=== PATIENT | female | born 1985 | race Two or more races ===

== ENCOUNTER 2019-04-08 06:31 | Inpatient (IN) | payer OTHER ==
[~2019-04-08] VITALS: Ht 160 cm; Wt 90.0 kg
[2019-04-08] VITALS (13 sets, daily range): BP systolic 104–128; BP diastolic 51–75
[~2019-04-08 06:31] MED LIST: ALBUTEROL SULF8.5 GM INH; TRAMADOL HCL50 MG ORAL
[2019-04-08] MEDS ORDERED: ceFAZolin sod 1 GM in NS 55 ML IVPB ONE (07:00)
[2019-04-08] MEDS ORDERED: ROBAXIN-500MG ORAL (07:16)
[2019-04-08] MEDS ORDERED: Vancomycin 1gm vial IVPB ONE (07:22)
[2019-04-08] MEDS ORDERED: TransDerm Scop 1.5mg/72HR Patch TDERMAL ONE ×2 (07:22→08:15)
[2019-04-08] MEDS ORDERED: Succinylcholine 20mg/ml 10ml vial ONE (07:23)
[2019-04-08] MEDS ORDERED: Rocuronium Bromide 50mg/5ml Inj IV ONE (07:23)
[2019-04-08] MEDS ORDERED: Midazolam 2mg/2ml Inj ONE (07:31)
[2019-04-08] MEDS ORDERED: fentaNYL 100 mcg/2 mL IV ONE (07:31)
[2019-04-08] MEDS ORDERED: Lidocaine 1% MPF 10mg/ml 5ml ONE (07:35)
[2019-04-08] MEDS ORDERED: Ketorolac 30mg Inj ONE (07:35)
[2019-04-08] MEDS ORDERED: Gelfoam Size TOPIC ONE (07:55)
[2019-04-08] MEDS ORDERED: Thrombin 5000 units TOPIC ONE ×2 (07:55→08:18)
[2019-04-08] MEDS ORDERED: Bupivacaine w/Epi 0.5% 30ml Vial INJ ONE (07:55)
[2019-04-08] MEDS ORDERED: Bacitracin 50000 Units Vial ONE (07:55)
[2019-04-08] MEDS ORDERED: Propofol 1,000mg/ 100ml btl IV ONE (08:00)
[2019-04-08] MEDS ORDERED: Sterile Water Irrig 1000ml IRRIG ONE (08:00)
[2019-04-08] MEDS ORDERED: LR 1000ml ONE (08:00)
[2019-04-08] MEDS ORDERED: NS Irrig 1000ml ONE (08:00)
[2019-04-08] MEDS ORDERED: Neostigmine 1mg/ml 10ml Inj ONE (08:00)
[2019-04-08] MEDS ORDERED: Glycopyrrolate 0.2mg/ml 1ml Vial ONE (08:00)
--- NOTE | 2019-04-08 08:12 | Anethesia Preoperative Eval ---
Anesthesia Pre-op PMH/ROS General Date of Evaluation: Apr 08, 2019 Time of Evaluation: 08:10 Anesthesiologist: Jones ASA Score: ASA 2 Mallampati Score Class I : Soft palate, uvula, fauces, pillars visible Class II: Soft palate, uvula, fauces visible Class III: Soft palate, base of uvula visible Class IV: Only hard plate visible Mallampati Classification: Class II Surgeon: Victoriano Diagnosis: Cervical radiculopathy Surgical Procedure: ACDF Anesthesia History: none Family History: no anesthesia problems Allergies: Coded Allergies: CEPHALEXIN (Verified Allergy, Severe, itching, 04/08/19) NICKEL (Verified Allergy, Severe, eczema, 04/08/19) AMOXICILLIN (Verified Adverse Reaction, Severe, "developed C-Diff", ) Medications: see eMAR Patient NPO?: Yes NPO Date: Apr 07, 2019 NPO Time: 2029 Past Medical History Cardiovascular: Denies: HTN, CAD, [place], valve dz, arrhythmia, other Pulmonary: Reports: asthma - mild; Denies: COPD, CYRUS, other Gastrointestinal/Genitourinary: Reports: GERD, other - Crons in remission; Denies: CRI, ESRD Neurologic/Psychiatric: Denies: dementia, CVA, depression/anxiety, TIA, other Endocrine: Denies: DM, hypothyroidism, steroids, other HEENT: Denies: cataract (L), cataract (R), glaucoma, ANGOON (L), ANGOON (R), other Hematology/Immune: Denies: anemia, DVT, bleeding disorder, other Musculoskeletal/Integumentary: Denies: OA, RA, DJD, DDD, edema, other Other: obesity PMH Narrative: as above PSxH Narrative: Dental Anesthesia Pre-op Phys. Exam Physician Exam Last Vital Signs Date Time Temp Pulse Resp B/P (MAP) Pulse Ox O2 Delivery O2 Flow Rate FiO2 04/08/19 07:17 Room Air 04/08/19 07:07 98.1 60 18 119/75 (90) 99 Constitutional: NAD Neurologic: CN 2-12 intact Cardiovascular: RRR, no M/R/G Respiratory: CTA Gastrointestinal: S/NT/ND Airway Exam Mallampati Score: Class II MO: full Neck: stiff ROM: limited Teeth: intact Dentures: no upper, no lower Anesthesia Pre-op A/P Labs Urine Test Test 04/08/19 06:45 Urine HCG, Qualitative Negative (NEGATIVE) Armando Goldman MD Apr 08, 2019 08:12
[2019-04-08] MEDS ORDERED: Acetaminophen (Non formulary) 100 ML IV ONE (08:15)
--- NOTE | 2019-04-08 08:48 | Pre-Procedure Note/Attestation ---
Pre-Procedure Note/Attestation Complete Prior to Procedure Procedure Narrative: ACDF C56 Indications for Procedure Pre-Operative Diagnosis: C56 discopathy, facet dysfunction Attestation I attest that I discussed the nature of the procedure; its benefits; risks and complications; and alternatives (and the risks and benefits of such alternatives ), prior to the procedure, with the patient (or the patient's legal apprenticeship training representative). I attest that, if there was a reasonable possibility of needing a blood transfusion, the patient (or the patient's legal apprenticeship training representative) was given the [facility] standardized written summary, pursuant to the Cameron Milla Blood Safety Act ([place] Health and Safety Code # 1645, as amended). I attest that I re-evaluated the patient just prior to the surgery and that there has been no change in the patient's H&P, except as documented below: Pedro Pastrana MD Apr 08, 2019 08:47
--- NOTE | 2019-04-08 08:56 | NUR ---
CASE MANAGEMENT:REVIEW 33 YR OLD FEMALE HERE FOR ELECTIVE SURGERY SI: C56 DISCOPATHY,FACET DYSFUNCTION 98.1 60 18 119/75 99% ON RA IS: TO SURGERY FOR: ACDF C56 IV ANCEF X1 : CURRENTLY IN SURGERY
[2019-04-08] MEDS ORDERED: Morphine Sulfate 10mg/ml Inj ONE (09:10)
[2019-04-08] MEDS ORDERED: Sodium Chloride 10ml vial INJ ONE (09:10)
[2019-04-08] MEDS ORDERED: LR 1000ml 1,000 ML IVLG SCH (09:37)
[2019-04-08] MEDS ORDERED: Meperidine 50mg/ml Inj(FOR RIGORS ONLY) IVP PRN (09:45)
[2019-04-08] MEDS ORDERED: DiphenhydrAMINE 50mg/ml Inj IVP PRN (09:45)
[2019-04-08] MEDS ORDERED: HYDROmorphone 1mg/ml Carpuject SUBQ PRN (09:45)
[2019-04-08] MEDS ORDERED: Metoclopramide 10mg/2ml Inj IVP PRN ×2 (09:45→10:30)
[2019-04-08] MEDS ORDERED: Hydromorphone 0.5mg/0.5ml inj IVP PRN (09:45)
[2019-04-08] MEDS ORDERED: Ketorolac 30mg Inj IV PRN (09:45)
[2019-04-08] MEDS ORDERED: Midazolam 2mg/2ml Inj IVP PRN (09:45)
[2019-04-08] MEDS ORDERED: Milk of Magnesia 30ml Ud ORAL PRN ×2 (09:45→12:28)
[2019-04-08] MEDS ORDERED: oxyCODONE 5mg IR tab ORAL PRN (09:45)
[2019-04-08] MEDS ORDERED: Methocarbamol 750mg tab ORAL PRN (10:00)
--- NOTE | 2019-04-08 10:31 | Brief Operative Note ---
Immediate Post Operative Note Operative Note Pre-op Diagnosis: C56 discopathy, facet dysfunction Procedure: c56 ACDF Post-op Diagnosis: same as pre-op Findings: consistent w/pre-op dx studies Surgeon: tanner Baler: caty suarez Anesthesiologist: adam Anesthesia: general Specimen: none Complications: none Condition: stable Fluids: 800 Estimated Blood Loss: minimal Drains: none Implant(s) used?: Yes - 4web and nextspine Pedro Pastrana MD Apr 08, 2019 10:31
--- NOTE | 2019-04-08 11:10 | Immediate Post-Op Evaluation ---
Immediate Post-Op Evalulation Immediate Post-Op Evalulation Procedure: ACDF C5-C6 Date of Evaluation: Apr 08, 2019 Time of Evaluation: 11:09 IV Fluids: 1000 Blood Products: none Estimated Blood Loss: 30 Urinary Output: 250 Blood Pressure Systolic: 116 Blood Pressure Diastolic: 56 Pulse Rate: 72 Respiratory Rate: 20 O2 Sat by Pulse Oximetry: 99 Temperature (Fahrenheit): 97.8 Pain Score (1-10): 1 Nausea: No Vomiting: No Complications none Patient Status: awake, patent, extubated, none Hydration Status: adequate Armando Goldman MD Apr 08, 2019 11:10
[2019-04-08] MEDS ORDERED: Albuterol ud Inhalation HHN PRN (12:25)
[2019-04-08] MEDS ORDERED: Chloraseptic Spray 20mL Bottle ORAL PRN (12:27)
--- NOTE | 2019-04-08 12:30 | NUR ---
NURSE NOTES: Pt was transferred from PACU via hospital bed. NC 3L/min. No c/o of pain/discomfort at this moment. IV on R hand 18g noted. Dressing noted on R sided neck, intact. Cervical collar on. SCD on bilateral legs. Orientation on new unit given. Belongings were accounted and given to . Bed in the lowest, locked, and alarm on. Call light within reach. Will continue to monitor
[2019-04-08] MEDS ORDERED: Albuterol/Ipratropium 3ml neb HHN PRN (12:45)
[2019-04-08] MEDS: D5 1/2NS 1,000 ML IV SCH ×2 (13:27→21:03)
[2019-04-08] MEDS: Dronabinol 2.5mg Cap ORAL SCH ×2 (13:27→21:02)
--- NOTE | 2019-04-08 13:43 | 48 Hour Post Anesthesia Eval ---
Post Anesthesia Evaluation Procedure: ACDF C5-C6 Date of Evaluation: Apr 08, 2019 Time of Evaluation: 13:42 Blood Pressure Systolic: 107 0: 62 Pulse Rate: 53 Respiratory Rate: 18 Temperature (Fahrenheit): 98.6 O2 Sat by Pulse Oximetry: 99 Airway: patent Nausea: No Vomiting: No Pain Intensity: 3 Hydration Status: adequate Cardiopulmonary Status: Stable Mental Status/LOC: patient returned to baseline Follow-up Care/Observations: 0 Post-Anesthesia Complications: 0 Jay Howell MD Apr 08, 2019 13:43
[2019-04-08] MEDS: Hydromorphone 0.5mg/0.5ml inj IVP PRN ×3 (13:44→21:03)
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
[2019-04-08] MEDS: Docusate 100mg cap ORAL SCH (17:36)
[2019-04-08] MEDS: Vancomycin 1 GM in D5W 275 ML IVPB SCH (17:42)
[2019-04-08] MEDS ORDERED: Docusate 100mg cap ORAL SCH (18:00)
--- NOTE | 2019-04-08 18:46 | Operative Note - Dictated ---
DATE OF OPERATION: 04/08/2019 SURGEON: Pedro Pastrana M.D. [employer]: Scotty Willson Anesthesis: Ravinder Goldman MD Anesthesia: GETA EBL: Minimal Fluids: 800cc PREOPERATIVE DIAGNOSIS: Cervical diskopathy facet syndrome, C5-C6. POSTOPERATIVE DIAGNOSIS: Cervical diskopathy facet syndrome, C5-C6. PROCEDURES: 1. Wide and radical diskectomy with decompression of spinal cord, C5-C6. 2. Interbody fusion using 4WEB structural cage. 3. Use of local autograft. 4. Use of allograft (Signafuse). 5. Anterior instrumentation using Nexxt Spine structure cervical plates. 6. Use of fluoroscopy. 7. Neurodiagnostic monitoring. 8. Use of operating microscope. OPERATIVE FINDINGS: Left-sided posterior, inferior annular rupture with extensive neovascularization and chronic inflammatory changes along the posterior lateral aspect of the disk, left side, C5-C6. INDICATIONS: The patient is a very pleasant woman with substantial neck pain post injury. Extensive conservative care was attempted. Despite having had temporary relief following injections and facet blocks, her symptomatic complaints persisted. Surgical intervention was discussed initially of artificial disk, however, based on the good overall benefits following the facet injections, I felt that a artificial disk would be less beneficial. The patient elected to proceed with surgical indications as outlined. RISKS NOTE: The patient was explained in detail risks, benefits of surgery to include, but not be limited to those of bleeding, infection, damage to nerves, vessels, tendons, anesthetic risk, allergic reaction, aspiration, possibly , possible ongoing pain and/or pseudoarthrosis, and need for additional surgery was discussed. OPERATIVE PROCEDURE IN DETAIL: The patient was taken to the operative suite. After general endotracheal anesthesia was obtained, Whitten catheter was placed. A bolster was placed under the neck, the arms were strapped. The chin was tucked and taped into place. Fluoroscope was brought in place and the C5-C6 level was marked out. At this point, the neck was prepped and draped in usual sterile fashion. The skin incision was carried out transversely at or about the C5-C6 level and placed in a skin crease. At this point, skin was infiltrated with Marcaine with epinephrine. The transverse incision was carried out to the platysma. Platysma was split perpendicular to the fibers. Blunt dissection was then carried out medial to the sternocleidomastoid and the neurovascular bundle. At this point, palpation of the disk was identified and the C5-C6 level was identified. Self-retaining Shadow-Line retractors were brought into place. Longus colli was elevated bilaterally and the retractor blades were placed deep to the longus colli. At this point, with use of a combination of Bovie as well as scalpel, the anterior aspect of the disk was incised, thorough diskectomy was performed. Once the diskectomy was carried out to the posterior aspect of the disk, a annular rent was clearly identified at the inferior aspect of the anulus. Extensive neovascularization and chronic inflammatory changes were noted. Bipolar was used to cauterize the bleeders. The posterior longitudinal ligament was removed in a piecemeal fashion using Kerrison 2 punches. Prominent bone spur along the posterior lateral corner was then removed with a Kerrison punch and high-speed drill. Once satisfied, endplate preparation was then performed, copious irrigation was performed, meticulous hemostasis was achieved. Please note that bone shavings with use of the high-speed drill were then harvested and used in the lateral gutter on the left side. At this point, the appropriate sized small profile 4WEB device was inserted after it was packed with Signafuse. Please note that prior to the diskectomy, Ortega posts were inserted and at the end of the procedure, they were removed. The hole was cauterized and bone wax was applied. Once satisfied with final interbody placement position, which actually did require repositioning as it was partially angulated, excellent interbody positioning was noted. Fluoroscopically, this was verified. At this point, an 8 mm plate was then chosen and appropriate sized screws were drilled and applied at every level. Once satisfied with screw placement, both clinically microscopically and fluoroscopically, the locking mechanism was deployed. Final AP lateral x-rays were obtained. At this point, sponge, needle counts were correct. Copious irrigation was performed. Meticulous hemostasis was achieved. Platysma was repaired using 0 Vicryl subcutaneous closure using 4-0 Vicryl. Dermabond and sterile dressing was applied. At the time of this dictation, awaiting extubation. [facility] Sherrell Pastrana DR: PAM JOB#: [id number] CC: LUCAS
[2019-04-08] MEDS ORDERED: Albuterol ud Inhalation HHN SCH (19:00)
--- NOTE | 2019-04-08 19:11 | NUR ---
HAND-OFF: Report given to KRISTI Leary.
[2019-04-08] MEDS: Albuterol/Ipratropium 3ml neb HHN SCH (19:40)
--- NOTE | 2019-04-08 21:30 | NUR ---
NURSE NOTES: Pt is in bed, awake and alert. Vitals stable. No acute distress noted. Pt is ambulatory, able to walk around the hallway. D5 1/2Ns running at 100ml/hr. Incentive spherometer by bedside, encouraged to use. SCDs on bilateral lower extremity. Pt has Neck collar on, dressing dry and intact. Patient complains of pain, pain medication will be given as ordered PRN. Fall precaution in place, bed locked low in position,side rails up and call light within reach. Patient will be monitored.
[2019-04-09] VITALS: BP 115/60
[2019-04-09] MEDS: Hydromorphone 0.5mg/0.5ml inj IVP PRN ×4 (00:15→09:07)
[2019-04-09] MEDS: Albuterol/Ipratropium 3ml neb HHN SCH ×2 (01:53→07:49)
[2019-04-09 04:00] VITALS: BP 123/60
--- NOTE | 2019-04-09 05:28 | NUR ---
NURSE NOTES: Pt is in bed, awake and alert. Pt is able to ambulate independently. Pt tolerating fluid orally, Dr. Denny ordered to DC IV fluid. Pt does however require Dilaudid 0.5mg IVP q3hrs for pain. Neck collar in place.
[2019-04-09] MEDS: Dronabinol 2.5mg Cap ORAL SCH (05:53)
[2019-04-09] MEDS: Vancomycin 1 GM in D5W 275 ML IVPB SCH (05:53)
--- NOTE | 2019-04-09 07:03 | NUR ---
HAND-OFF: Report given to KRISTI Nunez.
--- NOTE | 2019-04-09 07:15 | Progress Note ---
DATE: 04/09/2019 ACUTE PAIN MANAGEMENT PHYSICIAN PROGRESS NOTE MEDICATIONS: Medication administration record reviewed. Medications include Tylenol, Fioricet, Mylanta, albuterol, Atrovent, Benadryl, Colace, Marinol, Dilaudid, milk of magnesia, Robaxin, Reglan, Zofran, oxycodone, Protonix, Chloraseptic spray, Phenergan, Restoril, vancomycin. LABORATORY STUDIES: No interval laboratory studies. OBJECTIVE: VITAL SIGNS: Afebrile, pulse 80, respirations 17, blood pressure 123/60, oxygen saturation 97% on room air. I spent over 60 minutes in consultation today. I saw the patient at the bedside with the nurse, Paulo. I discussed the case with the surgeon, Dr. Pastrana. The patient has been doing very well after her cervical spine surgery. The neck dressing appears clean and dry with the Crystal collar in place. The patient has been able to move in and out of bed independently, without any extra assistance needed. She is swallowing, breathing, and phonating within normal limits. The neck dressing appears clean and dry. The patient appears grossly neurologically intact. The patient states that her postoperative pain is primarily incisional in-nature. This is very encouraging as hopefully the incisional pain will subside within the next 48 hours. The patient has been using the IV Dilaudid primarily for analgesia postoperatively. I have left a prescription for Percocet 10/325 tablets quantity of 40 for outpatient usage. The patient has been tolerating the around the clock Marinol every 8 hours here in the hospital and will use her medical marijuana at home for analgesia as well. The patient is tolerating liquid intake. She has no nausea symptoms. She denies shortness of breath or chest pain. Her vital signs are stable and she has been compliant using her incentive spirometer. She is ambulating well for DVT prophylaxis. The patient is alert and oriented x3. She is pleasant and in good spirits. The will be able to assist with activities of daily living. I expect Dr. Pastrana will re-evaluate the patient later this morning with likely expectations to discharge to home. Glenn Denny M.D. DR: ELISABETH JOB#: [id number] CC:
--- NOTE | 2019-04-09 07:37 | NUR ---
NURSE NOTES: Received pt in bed, AAO x 4. Room air. No c/o of pain/distress at this moment. cervical collar on. IV on R hand 18g intact, running vanco. Side rails x 2. Bed in the lowest and locked. Call light within reach. Will continue to monitor
--- NOTE | 2019-04-09 07:55 | NUR ---
P.T Note: late entry 04/08/19 1500 P.T evaluation completed and tx initiated per spinal protocols. See P.T evaluation for current functional status.
[2019-04-09 08:00] VITALS: BP 116/78
[2019-04-09] MEDS: Docusate 100mg cap ORAL SCH (08:35)
--- NOTE | 2019-04-09 08:35 | Orthopedic Spine Progress Note ---
Ortho Spine - Progress Note Subjective Symptoms: c/o post-op neck pain, improved - as compared to pre-op Objective Vital Signs: Last 24 Hour Vital Signs Date Time Temp Pulse Resp B/P (MAP) Pulse Ox O2 Delivery O2 Flow Rate FiO2 04/09/19 07:40 84 19 98 Room Air 21 80 18 98 04/09/19 04:00 98.7 80 17 123/60 (81) 97 04/09/19 01:53 81 16 100 Room Air 36 79 18 100 04/09/19 00:00 98.5 61 17 115/60 (78) 97 04/08/19 21:00 Room Air 04/08/19 20:00 98.5 65 18 116/68 (84) 96 04/08/19 19:42 75 16 99 Room Air 21 04/08/19 19:40 83 16 99 Room Air 36 78 18 98 04/08/19 15:00 98.0 60 20 104/64 (77) 97 04/08/19 14:00 98.2 64 20 108/60 (76) 96 04/08/19 13:43 53 18 99 04/08/19 13:00 97.9 64 20 104/51 (68) 99 04/08/19 12:30 98.6 57 18 107/62 (77) 99 04/08/19 12:00 62 17 118/58 99 Nasal Cannula 3 04/08/19 11:45 60 16 125/60 99 Nasal Cannula 3 04/08/19 11:30 61 14 111/65 100 Nasal Cannula 3 04/08/19 11:20 62 12 115/62 100 Simple Mask 6 04/08/19 11:10 65 19 104/62 100 Simple Mask 6 04/08/19 11:10 72 20 99 04/08/19 11:05 72 20 111/57 100 Simple Mask 6 04/08/19 11:01 97.7 89 14 128/57 100 Simple Mask 6 I&O: Intake and Output 04/08/19 04/09/19 19:00 07:00 Intake Total 1700 ml 1343.3 ml Output Total 280 ml Balance 1420 ml 1343.3 ml Intake Oral 600 ml 360 ml IV Total 1100 ml 983.3 ml Output Urine Total 250 ml Estimated Blood Loss 30 ml # Voids 1 1 Wound: clean, intact Drains: none Neuro Status: normal Assessment Procedure Performed: c56 ACDF Plan Plan: PT, discharge plan Pedro Pastrana MD Apr 09, 2019 08:34
--- NOTE | 2019-04-09 09:18 | NUR ---
P.T Note: Pt reports c/o increased discomfort wearing ASPEN cervical collar. Will clarify with Dr. Pastrana if OK to weak sof cervical collar in bed. RN notified. Addendum: 04/09/19 at 0918 by BYRON VÁSQUEZ PT Amended: Links added.
[2019-04-09] MEDS ORDERED: PERCOCET 10-321 EAC1 ORAL (11:41)
[2019-04-09] MEDS ORDERED: Metoclopramide 10mg/2ml Inj IVP PRN (12:30)
[2019-04-09] MEDS ORDERED: Hydromorphone 0.5mg/0.5ml inj IVP PRN (12:30)
[2019-04-09] MEDS ORDERED: oxyCODONE 5mg IR tab ORAL PRN (12:30)
[2019-04-09] MEDS ORDERED: Chloraseptic Spray 20mL Bottle ORAL PRN (12:30)
[2019-04-09] MEDS ORDERED: Milk of Magnesia 30ml Ud ORAL PRN (12:30)
[2019-04-09] MEDS ORDERED: HYDROmorphone 1mg/ml Carpuject SUBQ PRN (12:30)
[2019-04-09] MEDS ORDERED: Methocarbamol 750mg tab ORAL PRN (12:30)
[2019-04-09] MEDS ORDERED: Albuterol/Ipratropium 3ml neb HHN PRN (12:30)
--- NOTE | 2019-04-09 12:47 | NUR ---
NURSE NOTES: patient was discharged to home via private vehicle accompanied by and friend. Escorted pt to first floor. ID and IV was removed. No s/s of infection on the removal site. Prescription and discharge instructions were given to patient and instructed pt to follow up with dr. Pastrana. Soft cervical collar was given to patient and was instructed to wear only when pt is sleeping, and need to wear the ASPEN cervical collar at all time. Belongings were accounted and given to patient.
[2019-04-09] MEDS ORDERED: Albuterol/Ipratropium 3ml neb HHN SCH (13:00)
[2019-04-09] MEDS ORDERED: Dronabinol 2.5mg Cap ORAL SCH (14:00)
[2019-04-09] MEDS ORDERED: Docusate 100mg cap ORAL SCH (18:00)
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
--- NOTE | 2019-04-11 15:48 | Diagnostic Imaging Report ---
Indication: Intraoperative imaging COMPARISON: None FINDINGS: Multiple fluoroscopic images were obtained intraoperatively. Localization imaged anteriorly at C5-6 demonstrated. This was followed by anterior discectomy and fusion. IMPRESSION: Intraoperative imaging
== END 2019-04-09 12:45 | disposition home or self-care (01) | DRG 472 ==
LOC: SDSOVERFLO 06:31 → 3E 12:20 → UNDODISIN 04-09 11:57
PROC: 0RT30ZZ Resection of Cervical Vertebral Disc, Open Approach (ICD-10-PCS; principal; 2019-04-08 08:30)
PROC: 0RG10A0 Fusion of Cervical Vertebral Joint with Interbody Fusion Device, Anterior Approach, Anterior Column, Open Approach (ICD-10-PCS; principal; 2019-04-08 08:30)
DX: M50.222 Other cervical disc displacement at C5-C6 level (principal); K50.90 Crohn's disease, unspecified, without complications; L30.9 Dermatitis, unspecified; E66.9 Obesity, unspecified; J45.20 Mild intermittent asthma, uncomplicated; Z88.1 Allergy status to other antibiotic agents; V89.2XXS Person injured in unspecified motor-vehicle accident, traffic, sequela; G89.18 Other acute postprocedural pain
CPT/HCPCS: 36415; 72040; 76000; 81025; 86850; 86900; 86901; 87081; 94003; 94150; 94640; 94664; J2250; J2405; J2710; J7620